=== PATIENT | female | born 1945 | race Caucasian/White ===

== ENCOUNTER → 2019-03-23 | Outpatient (CLI) | payer OTHER | LOC: M.RAD 03-22 10:25 | DX: N63.11 Unspecified lump in the right breast, upper outer quadrant (principal); R92.2 Inconclusive mammogram; R92.1 Mammographic calcification found on diagnostic imaging of breast; Z88.0 Allergy status to penicillin ==

== ENCOUNTER → 2019-03-29 | Outpatient (CLI) | payer OTHER | END | disposition home or self-care (01) | LOC: M.ULTRA 08:30 | DX: D05.11 Intraductal carcinoma in situ of right breast (principal); R92.0 Mammographic microcalcification found on diagnostic imaging of breast; Z88.0 Allergy status to penicillin; Z79.899 Other long term (current) drug therapy ==

== ENCOUNTER → 2019-04-12 | Outpatient (CLI) | payer OTHER | LOC: M.LAB 10:30 → M.MRI 10:30 → M.LAB 10:41 → M.MRI 10:41 | PROVIDERS: Surgery | DX: N63.20 Unspecified lump in the left breast, unspecified quadrant (principal); C50.411 Malignant neoplasm of upper-outer quadrant of right female breast ==

== ENCOUNTER 2021-02-09 12:23 | Emergency (ER) | payer MEDICARE ==
[~2021-02-09] VITALS: Ht 162.6 cm; Wt 68.0 kg
[2021-02-09] MEDS ORDERED: CEPHALEXIN500 MG PO (12:39)
[2021-02-09] MEDS ORDERED: VENTOLIN HFA 1818 GM INH (13:13)
[2021-02-09] MEDS ORDERED: PREDNISONE 20 M20 M1 PO (13:13)
[2021-02-09 13:20] VITALS: BP 136/72
== END 2021-02-09 13:21 | disposition home or self-care (01) ==
LOC: M.ERS 12:23
DX: T78.49XA Other allergy, initial encounter (principal); Z90.89 Acquired absence of other organs; Z88.0 Allergy status to penicillin; Z88.8 Allergy status to other drugs, medicaments and biological substances; X58.XXXA Exposure to other specified factors, initial encounter